=== PATIENT | male | born 1985 | race Two or more races ===

== ENCOUNTER 2019-05-12 21:56 | Emergency (ER) | payer OTHER ==
[~2019-05-12] VITALS: Ht 177.8 cm; Wt 99.8 kg
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
--- NOTE | 2019-05-12 22:30 | NUR ---
URINE SENT TO STAT LAB
--- NOTE | 2019-05-12 22:57 | NUR ---
PT TAKEN TO CT VIA STEPHEN
[2019-05-12] MEDS ORDERED: HYDROCODONE/APAP 5/325MG 1 EACH TABLET PO ONE (23:00)
[2019-05-12] MEDS ORDERED: HYDROCODONE/APAP 5/325MG 1 EACH TABLET ONE (23:13)
[2019-05-12 23:47] LABS: APPEARANCE,URINE Clear (CLEAR); BILIRUBIN,URINE Negative (NEGATIVE); BLOOD, URINE Moderate Ery/uL (NEGATIVE); COLOR,URINE Yellow (YELLOW); KETONES,URINE Negative (NEGATIVE); LEUKOCYTE ESTERASE ,URINE Negative (NEGATIVE); NITRITE, URINE Negative (NEGATIVE); PH,URINE 6.5 (5.0-8.0); PROTEIN,URINE >=300 mg/dl (NEGATIVE); UGLUCOSE Negative (NEGATIVE); UROBILINOGEN,URINE 0.2 EU/dL (0.2)
[2019-05-13 00:18] LABS: BASOPHILS # (AUTO) 0.1 /CMM (0.0-0.2); BASOPHILS % (AUTO) 0.6 % (0.0-2.0); EOSINOPHILS % (AUTO) 0.3 % (0.0-6.0); HEMATOCRIT 43 % (39-51); HEMOGLOBIN 14.2 g/dL (13.5-17.5); LYMPHOCYTES # (AUTO) 1.3 /CMM (0.8-4.8); LYMPHOCYTES % (AUTO) 15.4 % (20.0-44.0); MEAN CORPUSCULAR HGB CONC 33 g/dl (31.0-36.0); MEAN CORPUSCULAR VOLUME 91 fL (80-96); MONOCYTES # (AUTO) 0.6 /CMM (0.1-1.30); MONOCYTES % (AUTO) 7.4 % (2.0-12.0); NEUTROPHILS # (AUTO) 6.6 /CMM (1.8-8.9); NEUTROPHILS % (AUTO) 76.3 % (43.0-81.0); PLATELET COUNT (AUTO) 239 /CMM (150-450); RED BLOOD CELL COUNT(AUTO) 4.72 MIL/uL (4.5-6.0); WHITE BLOOD COUNT (AUTO) 8.7 K/uL (4.3-11.0)
[2019-05-13 00:20] LABS: BACTERIA,URINE Rare /HPF (None Seen); WBC,URINE NONE SEEN /HPF (0-3)
[2019-05-13 00:21] LABS: SQUAMOUS EPITHELIAL CELL,UR Few /HPF (None Seen)
[2019-05-13 00:30] LABS: CALCIUM, SERUM 8.1 mg/dL (8.5-10.1); POTASSIUM 3.4 mmol/L (3.5-5.1)
[2019-05-13 00:36] LABS: ALBUMIN 3.5 g/dL (3.4-5.0); BILIRUBIN,DIRECT 0.1 mg/dL (0.0-0.2); BILIRUBIN,TOTAL 0.4 mg/dL (0.2-1.0); TOTAL PROTEIN, SERUM 7.5 g/dL (6.4-8.2)
[2019-05-13 00:46] LABS: SALICYLATE 0.4 mg/dL (2.8-20.0)
--- NOTE | 2019-05-13 03:03 | NUR ---
CLINICAL INFORMATION FAXED TO [facility]
--- NOTE | 2019-05-13 06:02 | NUR ---
[facility]P [facility] FROM [facility], NO BEDS AVAILABLE AT THIS TIME.
--- NOTE | 2019-05-13 08:28 | NUR ---
PT ASLEEP ON BED EASILY AROUSABLE, AAOX3 ,NOT IN RESPIRATORY DISTRESS, V/S STABLE, KEPT RESTED AND COMFORTABLE, WILL CONTINUE TO MONITOR.
--- NOTE | 2019-05-13 10:24 | NUR ---
CALL BACK FROM [facility],INTAKE AT [facility],ACCEPTED AT [facility] BY DR GALEANA,REPORT TO [phone] X [phone]
--- NOTE | 2019-05-13 11:16 | NUR ---
PT RESTING COMFORTABLY IN BED, NO ACUTE DISTRESS NOTED. NO COMPLAINTS AT THIS TIME. VSS. WILL CONT TO MONITOR.
--- NOTE | 2019-05-13 11:22 | NUR ---
MARY JANE WILL BE HERE AT 1300
--- NOTE | 2019-05-13 12:59 | NUR ---
REPORT GIVEN TO BELLA POLLACK AT [facility]
--- NOTE | 2019-05-13 13:24 | NUR ---
REPORT GIVEN TO [id number] FOR TRANSFER OF CARE
[2019-05-13 13:29] VITALS: BP 123/72
== END 2019-05-13 13:30 ==
LOC: ER 21:57
DX: S09.8XXA Other specified injuries of head, initial encounter (principal); F25.9 Schizoaffective disorder, unspecified; F31.9 Bipolar disorder, unspecified; R45.851 Suicidal ideations; F10.10 Alcohol abuse, uncomplicated; F17.200 Nicotine dependence, unspecified, uncomplicated; Y90.6 Blood alcohol level of 120-199 mg/100 ml; Z71.6 Tobacco abuse counseling; Z98.890 Other specified postprocedural states; W22.8XXA Striking against or struck by other objects, initial encounter; Y93.89 Activity, other specified; Y92.89 Other specified places as the place of occurrence of the external cause; Y99.8 Other external cause status
CPT/HCPCS: 36415; 70450; 80048; 80076; 80305; 80307; 80329; 81001; 85025; 99285; 99406; G0480; 81000-TC